=== PATIENT | male | born 1965 | race Caucasian/White ===

== ENCOUNTER 2018-09-23 14:55 | Emergency (ER) | payer OTHER, SELFPAY ==
[2018-09-23] VITALS (32 sets, daily range): BP systolic 106–141; BP diastolic 61–79; PULSE 98–114; RESP 14–35; TEMP 36.3–36.7; O2SAT 95–99
--- NOTE | 2018-09-23 15:03 | DI.CT_ITS ---
SYMPTOM/DIAGNOSIS: CHEST AND ABDOMINAL PAIN CT ANGIOGRAPHY CHEST, ABDOMEN AND PELVIS: CT angiography was performed with multi slice acquisition and multi planar and 3D reconstruction. CT ABDOMEN AND PELVIS: CT angiography was performed with multi slice acquisition and multi planar and 3D reconstruction. The liver is normal in size and appearance. No evidence of hepatic mass is seen. The portal, superior mesenteric and splenic veins appear unremarkable. The patient is status post cholecystectomy No biliary ductal dilatation is present The pancreas is unremarkable as are the spleen and adrenal glands. The kidneys show normal and symmetric enhancement. No evidence of a solid renal mass or obstruction. The urinary bladder is intact. There may be mild thickening of the wall of the urinary bladder. The prostate gland is enlarged and impinges upon the base of the urinary bladder. There is diverticulosis in the colon but no evidence of acute diverticulitis. The bowel shows no evidence of obstruction or inflammation or infection. There is a normal appendix present. The abdominal aorta is intact. No aneurysm or dissection seen. The superior mesenteric celiac axis and inferior mesenteric arteries are unremarkable without evidence of significant stenosis or occlusion. The renal arteries are unremarkable without evidence of significant stenosis or occlusion. No significant abdominal or pelvic adenopathy or pneumoperitoneum is seen. No ascites is present. The patient is status post anterior abdominal wall hernia repair with mesh placement. No acute osseous abnormality is identified. IMPRESSION: No acute arterial injury 2. Urinary bladder wall thickening. This may represent cystitis or bladder outlet obstruction. 3. Enlarged prostate gland impinging upon the base of the urinary bladder. CTA CHEST: CT angiography was performed with multi slice acquisition and multi planar and 3D reconstruction. The thoracic aorta is intact. No evidence of dissection or aneurysm. Heart size is within normal limits. No significant pericardial effusion seen. Coronary artery calcifications are present. No significant thoracic adenopathy is present. No pleural effusion or pneumothorax is identified. No focal consolidating infiltrates are present. The tracheobronchial tree is unremarkable. No acute osseous abnormality is present. IMPRESSION: No acute abnormality.
--- NOTE | 2018-09-23 15:05 | ED.GENADUL_ITS ---
Discharge Plan Disposition Patient Disposition: HOME Condition: Stable Discharge Details Chief Complaint: Palpitatns Clinical Impression: Heart palpitations, Urinary tract infection Primary Care Provider: [facility],Local ED Provider: Hiro Willett Home Meds and New Rx's Prescriptions: New levofloxacin 750 mg tablet 750 mg PO DAILY Qty: 6 RF: 0 No Action omeprazole 40 mg Capsule,Delayed Release(Dr/Ec) 40 mg PO DAILY RF: 0 tamsulosin [Flomax] 0.4 mg Capsule 0.4 mg PO BID RF: 0 aspirin 81 mg Tablet,Chewable 81 mg PO DAILY RF: 0 losartan [Cozaar] 100 mg Tablet 100 mg PO DAILY RF: 0 finasteride 5 mg Tablet 5 mg PO DAILY RF: 0 rosuvastatin [Crestor] 20 mg Tablet 20 mg PO DAILY RF: 0 metoprolol tartrate 25 mg Tablet 25 mg PO DAILY RF: 0 Discharge Instructions Instructions: Palpitations (ED), Urinary Tract Infection in Men (ED) Additional Instructions: follow up with your primary care provider within 1-2 weeks if you feel more ill, have severe pain or persistent vomit return to the emergency department Medical Decision Making 53 yo male with hx of cad s/p 2 stents years ago that was tx'd in [place] and recently moved to the area, comes in with chief complaint of periods of feeling his heart beating fast and diaphoresis. Denies pain or pressure of the chest, but felt it going fast a few hours ago along with diaphroesis and lasted a few minutes. Had a recurrent episode so ems was called and ems states he was in sinus tachycardia at a rate of 130 and now is in sinus tachycardia at a rate of 104. He forgot to take his metoprolol this morning. Denies fevers, chills, n/v, does have some mid abdomen pain with palpation. ECG shows rbbb and he states he has had this in the past. Given his constellation of his symptoms will obtain lab work to eval for electrolyte abnormality, nstemi, and also image his chest and abd/pelvis to eval for entities such as dissection and monitor pt remains HD stable, cta negative for dissection, does have ? cystitis on ct. He has hx of bph and has had some discomfort with urination, wbc of 16 and anion gap of over 20, he states he was outside in the heat and not hydrating well. Will repeat troponin and chemistries after fluid hydration. Will also check UA ua shows no findings but given ct findings will start levofloxacin to cover for uti vs prostatitis. His HR is now in the 90's and he feels much better, 2nd troponin negative and anion gap significantly improved with ivf which makes likely dehydration as cause of this. no hyperglycemia to suggest dka. Advised f/u with pcp and return precautions given Differential Diagnosis afib, svt, pe, dissection Imaging Data Radiologic Study: Attestation: I personally reviewed and interpreted this imaging study as follows: Imaging: CT Scan Radiologist's impression: CT Angiography Chest With Contrast EXAM DATE/TIME: 09/23/2018 3:03 PM CLINICAL HISTORY: 53 years old, male; Chest pain; Abdominal pain; Acute TECHNIQUE: Imaging protocol: Axial computed tomographic angiography images of the chest with intravenous contrast using CT angiography protocol. Coronal and sagittal reformatted images were created and reviewed. 3D rendering: MIP reconstructed images were created and reviewed. COMPARISON: No relevant prior studies available. FINDINGS: Pulmonary arteries: Normal. No pulmonary emboli. Aorta: Unremarkable. No aortic aneurysm. No aortic dissection. Lungs: Unremarkable. No consolidation. No masses. Pleural space: Unremarkable. No pneumothorax. No pleural effusion. Heart: Coronary artery calcifications noted. Lymph nodes: Unremarkable. No enlarged lymph nodes. Bones/joints: There is deformity of left upper ribs, presumed previous trauma. Soft tissues: Unremarkable. IMPRESSION: No evidence for pulmonary embolus. No acute abnormality seen to account for symptoms. EDIE MARTINEZ Preliminary Radiology Report Page 2 of 3 EXAM: CT Angiography Abdomen and Pelvis With Contrast EXAM DATE/TIME: 09/23/2018 3:03 PM CLINICAL HISTORY: 53 years old, male; Chest pain; Abdominal pain; Acute TECHNIQUE: Imaging protocol: Axial computed tomographic angiography images of the abdomen and pelvis with intravenous contrast material. Coronal and sagittal reformatted images were created and reviewed. 3D rendering: MIP reconstructed images were created and reviewed. COMPARISON: No relevant prior studies available. FINDINGS: VASCULATURE: Aorta: Moderate atherosclerotic change present in the vasculature. Celiac trunk and mesenteric arteries: No occlusion or significant stenosis. Renal arteries: No occlusion or significant stenosis. Right iliac arteries: No occlusion or significant stenosis. Left iliac arteries: No occlusion or significant stenosis. ABDOMEN: Liver: No mass. Gallbladder and bile ducts: Gallbladder absent. Pancreas: Unremarkable. No mass. No ductal dilation. Spleen: Unremarkable. No splenomegaly. Adrenals: Unremarkable. No mass. Kidneys and ureters: Unremarkable. No solid mass. No hydronephrosis. Stomach and bowel: Diverticulosis without acute diverticulitis. Appendix: Appendix well seen, within normal limits area PELVIS: Bladder: For the degree of bladder distention there appears to be mild bladder wall thickening. Reproductive: The prostate is enlarged, 5.6 cm with some impingement at the bladder base. It appears the patient is status post vasectomy. ABDOMEN and PELVIS: Intraperitoneal space: Unremarkable. No free air. No significant fluid collection. Bones/joints: Moderate lower lumbar spondylosis. Soft tissues: Status post anterior abdominal wall hernia repair with mesh placement. EDIE MARTINEZ Preliminary Radiology Report FIELD SUPERVISOR SEED PRODUCTION (QA) DISCREPANCY? If there is a discrepancy between the preliminary and final interpretation, please notify [facility] via [email or web address]. If you do not have access to our QA portal, call our QA team at [phone] CONFIDENTIALITY STATEMENT This report is intended only for the use of the referring physician, and only in accordance with law, If you received this in error, call [phone] Page 3 of 3 Lymph nodes: Shotty mesenteric adenopathy. IMPRESSION: Possible cystitis versus degree of bladder obstruction. COMMENT: Preliminary interpretation is based on receipt of 3296 image(s). A final report will be issued subsequently. Thank you for allowing us to participate in the care of your patient Lab Data Lab results reviewed: Yes I reviewed the patient's lab results. ECG Data Attestation: I personally reviewed and interpreted this ECG (s) as follows: Prior ECG tracings: not available for review Interpretation: sinus tachycardia, rate of 104, pr 138, rbbb 2nd ekgshows sinus rhythm, rate of 105, pr 130, rbbb HPI General Mode of arrival: ambulatory . Date/Time Provider Initiated Documentation: 09/23/18 14:56 . Limitations to Documentation: no limitations . Information obtained by: patient . History of Present Illness 53 year old M presents to the emergency department with the chief complaint of palpitations, described as moderate, Patient started experiencing this hour(s) (2) and it has been intermittent. No relieving factors improve symptom(s), No exacerbating factors reported . Patient notes diaphoresis. Related Data Home Medications Medication Instructions Recorded Confirmed aspirin 81 mg PO DAILY 09/23/18 09/23/18 finasteride 5 mg PO DAILY 09/23/18 09/23/18 levofloxacin 750 mg PO DAILY #6 tab 09/23/18 losartan [Cozaar] 100 mg PO DAILY 09/23/18 09/23/18 metoprolol tartrate 25 mg PO DAILY 09/23/18 09/23/18 omeprazole 40 mg PO DAILY 09/23/18 09/23/18 rosuvastatin [Crestor] 20 mg PO DAILY 09/23/18 09/23/18 tamsulosin [Flomax] 0.4 mg PO BID 09/23/18 09/23/18 Previous Rx's Medication Instructions Recorded levofloxacin 750 mg PO DAILY #6 tab 09/23/18 Allergies Allergy/AdvReac Type Severity Reaction Status Date / Time No Known Allergies Allergy Unverified 09/23/18 15:07 Review of Systems Review of Systems All systems reviewed & are unremarkable except as noted in HPI and below Constitutional Denies chills, Denies fever(s) and Denies weakness Cardiovascular Denies dyspnea Respiratory Denies cough and Denies dyspnea Gastrointestinal Denies abdominal pain, Denies nausea and Denies vomiting Integumentary/Breasts Denies rash Neurologic Denies weakness Endocrine Denies heat intolerance PFSH Social History Smoking/Tobacco Use Status: Former Tobacco Use Drug use: Occasionally Substance use type: marijuana Exam Const General: no acute distress Orientation: alert HENMT Head: normal to inspection Ears: external ears normal General nose exam: external nose normal Mouth: moist mucous membranes Eyes General: appearance normal, both eyes and all related structures Neck Neck: normal visual inspection Resp Effort & Inspection: normal respiratory effort and able to speak in complete sentences Cardio Jugular venous pressure: no JVD Skin General skin exam: no rashes or lesions noted Neuro General: alert and oriented x3 Extrem General: normal to inspection Psych Mental Status: mental status grossly normal
[2018-09-23 15:08] LABS: Abs Immature Grans 0.04 k/cumm (0.0-0.09); Absolute Basophil Count 0.03 k/cumm (0.0-0.2); Absolute Eosinophil Count 0.05 k/cumm (0.0-0.7); Absolute Lymphocyte Count 2.36 k/cumm (1.2-3.4); Absolute Monocyte Count 0.99 k/cumm (0.11-0.7); Absolute Neutrophil Count 12.73 k/cumm (1.2-6.7); Basophils % 0.2; Eosinophils % 0.3; HCT 48.2 % (40.0-50.0); Immature Grans % 0.2; Lymphocytes % 14.6; Mean Corp. HGB Concentration 35.3 g/dL (32.0-36.0); Mean Corpuscular Hemoglobin 30.2 pg (27.0-33.0); Mean Corpuscular Volume 85.6 fL (80-95); Monocytes % 6.1; Neutrophils % 78.6; Platelet Count 251 x1000/uL (130-400); RBC 5.63 m/cumm (4.50-6.00); RBC Distribution Width 13.1 % (11.8-14.1); White Blood Cell Count 16.19 k/cumm (4.4-10.8)
[2018-09-23 15:21] LABS: PTT Activated 20.7 sec (21.0-31.4); Prothrombin Time 9.9 sec (9.3-11.0)
[2018-09-23] MEDS: Omnipaque 350 MG/ML 100 ML BTL IJ (15:30)
[2018-09-23 15:41] LABS: ALT 34 U/L (12-78); AST 24 U/L (15-37); Albumin 4.9 g/dL (3.4-5.0); Alkaline Phosphatase 63 U/L (46-116); BUN 14 mg/dL (7-18); Bilirubin, Total 0.6 mg/dL (0.2-1.0); CREATININE 1.11 mg/dL (0.70-1.30); Calcium 10.1 mg/dL (8.5-10.1); Chloride 97 mmol/L (98-107); Glucose 75 mg/dL (70-100); Magnesium 2.1 mg/dL (1.8-2.4); NT-proBNP 10 pg/mL; Sodium 139 mmol/L (136-145); Total Protein 8.3 g/dL (6.4-8.2)
[2018-09-23 15:43] LABS: Troponin I < 0.05 ng/mL (0.00-0.06)
--- NOTE | 2018-09-23 16:10 | DI.VRAD_ITS ---
EXAM: CT Angiography Chest With Contrast EXAM DATE/TIME: 09/23/2018 3:03 PM CLINICAL HISTORY: 53 years old, male; Chest pain; Abdominal pain; Acute TECHNIQUE: Imaging protocol: Axial computed tomographic angiography images of the chest with intravenous contrast using CT angiography protocol. Coronal and sagittal reformatted images were created and reviewed. 3D rendering: MIP reconstructed images were created and reviewed. COMPARISON: No relevant prior studies available. FINDINGS: Pulmonary arteries: Normal. No pulmonary emboli. Aorta: Unremarkable. No aortic aneurysm. No aortic dissection. Lungs: Unremarkable. No consolidation. No masses. Pleural space: Unremarkable. No pneumothorax. No pleural effusion. Heart: Coronary artery calcifications noted. Lymph nodes: Unremarkable. No enlarged lymph nodes. Bones/joints: There is deformity of left upper ribs, presumed previous trauma. Soft tissues: Unremarkable. IMPRESSION: No evidence for pulmonary embolus. No acute abnormality seen to account for symptoms. EXAM: CT Angiography Abdomen and Pelvis With Contrast EXAM DATE/TIME: 09/23/2018 3:03 PM CLINICAL HISTORY: 53 years old, male; Chest pain; Abdominal pain; Acute TECHNIQUE: Imaging protocol: Axial computed tomographic angiography images of the abdomen and pelvis with intravenous contrast material. Coronal and sagittal reformatted images were created and reviewed. 3D rendering: MIP reconstructed images were created and reviewed. COMPARISON: No relevant prior studies available. FINDINGS: VASCULATURE: Aorta: Moderate atherosclerotic change present in the vasculature. Celiac trunk and mesenteric arteries: No occlusion or significant stenosis. Renal arteries: No occlusion or significant stenosis. Right iliac arteries: No occlusion or significant stenosis. Left iliac arteries: No occlusion or significant stenosis. ABDOMEN: Liver: No mass. Gallbladder and bile ducts: Gallbladder absent. Pancreas: Unremarkable. No mass. No ductal dilation. Spleen: Unremarkable. No splenomegaly. Adrenals: Unremarkable. No mass. Kidneys and ureters: Unremarkable. No solid mass. No hydronephrosis. Stomach and bowel: Diverticulosis without acute diverticulitis. Appendix: Appendix well seen, within normal limits area PELVIS: Bladder: For the degree of bladder distention there appears to be mild bladder wall thickening. Reproductive: The prostate is enlarged, 5.6 cm with some impingement at the bladder base. It appears the patient is status post vasectomy. ABDOMEN and PELVIS: Intraperitoneal space: Unremarkable. No free air. No significant fluid collection. Bones/joints: Moderate lower lumbar spondylosis. Soft tissues: Status post anterior abdominal wall hernia repair with mesh placement. Lymph nodes: Shotty mesenteric adenopathy. IMPRESSION: Possible cystitis versus degree of bladder obstruction. COMMENT: Preliminary interpretation is based on receipt of 3296 image(s). A final report will be issued subsequently. Dictated and Authenticated by: Yanelis Owens MD. Ordering:PRAKASH Bosch MD
[2018-09-23] MEDS: Normal Saline 1,000 ML 1000 ML IV ×2 (16:13→17:29)
[2018-09-23 16:49] LABS: Bilirubin Negative (Negative); Blood Negative (Negative); Clarity Clear (Clear); Glucose Negative (Negative); Ketones >=160 mg/dL (Negative); Leukocyte Esterase Negative (Negative); Nitrite Negative (Negative); Urobilinogen 0.2 EU/dL (Up TO 0.2)
[2018-09-23] MEDS: levoFLOXacin 500 MG, levoFLOXacin 250 MG 750 MG PO (17:58)
--- NOTE | 2018-09-23 18:00 | NUR.NOTE ---
Nursing Note: Records requested from [facility], [place], [place]. Release signed and faxed. Kacie Smith. P [phone] F [phone]
[2018-09-23 18:22] LABS: Troponin I < 0.05 ng/mL (0.00-0.06)
[2018-09-23 18:34] LABS: Anion Gap 18.4 mmol/L (3-11); BUN 13 mg/dL (7-18); CO2 16.6 mmol/L (21.0-32.0); CREATININE 0.97 mg/dL (0.70-1.30); Calcium 8.3 mg/dL (8.5-10.1); Chloride 104 mmol/L (98-107); Glucose 59 mg/dL (70-100); Potassium 4.7 mmol/L (3.5-5.1); Sodium 139 mmol/L (136-145)
[2018-09-23] MEDS: Ondansetron O.D.T. 4 MG TABEF (19:01)
== END 2018-09-23 19:00 | disposition home or self-care (01) ==
PROVIDERS: Emergency Provider Emergency Medicine
DX: R00.2 Palpitations (principal); N39.0 Urinary tract infection, site not specified; I45.10 Unspecified right bundle-branch block
CPT/HCPCS: 36415; 36416; 74177; 80048; 80053; 82962; 93005; 96360; 96361; 99285; 81003; 83735; 83880; 84484; 85025; 85610; 85730; 87086; 93010; J3490